=== PATIENT | female | born 1985 ===

== ENCOUNTER 2023-02-10 10:40 | Emergency (ER) | payer BC ==
[2023-02-10] MEDS ORDERED: Amoxicillin 500 MG Cap PO ONE (11:50)
[2023-02-10] MEDS ORDERED: Take Home: Amoxicillin 500 MG, 6 Cap Pack PO ONE (11:50)
[2023-02-10 12:03] LABS: CORONAVIRUS COVID-19 NAA NEGATIVE (NEGATIVE); INFLUENZA A NAA NEGATIVE (NEGATIVE); INFLUENZA B NAA NEGATIVE (NEGATIVE)
== END 2023-02-10 12:28 | disposition home or self-care (01) ==
LOC: DL.ED 10:40
DX: J02.0 Streptococcal pharyngitis (principal); Z79.899 Other long term (current) drug therapy; Z20.822 Contact with and (suspected) exposure to COVID-19
CPT/HCPCS: 0240U; 87430; 99282; 99283; A9270